=== PATIENT | male | born 1990 | race American Indian/Alaskan Native ===

== ENCOUNTER 2020-04-21 16:11 | Emergency (ER) | payer SELFPAY ==
[2020-04-21] MEDS ORDERED: Meclizine 25 MG Tab PO ONE (17:04)
--- NOTE | 2020-04-21 17:11 | EDM.PDOC ---
ED HPI GENERAL MEDICAL PROBLEM - General Chief Complaint: Cardiovascular Problem Stated Complaint: DIZZY Time Seen by Provider: 04/21/20 16:55 Source of Information: Reports: Patient, RN History Limitations: Reports: No Limitations - History of Present Illness INITIAL COMMENTS - FREE TEXT/NARRATIVE: 29 yo male presents with fatigue and waxing and waning vertigo-like sx's for ab out a week. Was tested for Covid and was negative just before this began. No fever. No cough or sore throat. Has felt unsteady with walking at times. Has not been to the clinic for this. No MILLER or head injury. Feels fatigue as well. Is Type I diabetic and has concern that his BP may be running too high. Not on anything for HTN or david-protection currently. Onset: Gradual Onset Date: 04/16/20 Duration: Day(s): (5-6), Waxing/Waning Location: Reports: Head Quality: Reports: Ache (diffuse) Severity: Mild Improves with: Reports: None Worsens with: Reports: Other (unknown) Context: Reports: Other (See HPI) Associated Symptoms: Reports: Malaise. 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) Left Chest Pain Score (Numeric/FACES): 1 - Related Data Allergies Allergy/AdvReac Type Severity Reaction Status Date / Time azithromycin [From Zithromax] Allergy Hives Verified 04/21/20 16:35 sertraline [From Zoloft] Allergy Confusion Verified 04/21/20 16:35 Home Meds: Home Meds Insulin Aspart [NovoLOG] 35 unit SQ WITHMEALSANDBED 04/21/20 [History] Insulin Detemir [Levemir] 45 unit SQ BID 04/21/20 [History] Meclizine [Antivert] 25 mg PO Q6H PRN #45 tab 04/21/20 [Rx] Telmisartan 40 mg PO DAILY #30 tablet 04/21/20 [Rx] Past Medical History HEENT History: Reports: Impaired Vision Cardiovascular History: Reports: Blood Clots/VTE/DVT Musculoskeletal History: Reports: Fracture Psychiatric History: Reports: Anxiety Endocrine/Metabolic History: Reports: Diabetes, Type I - Past Surgical History Musculoskeletal Surgical History: Reports: ORIF, Other (See Below) Other Musculoskeletal Surgeries/Procedures:: left hand Social & Family History - Tobacco Use Tobacco Use Status *Q: Current Every Day Tobacco User Years of Tobacco use: 10 Packs/Tins Daily: 0.2 - Caffeine Use Caffeine Use: Reports: Energy Drinks - Recreational Drug Use Recreational Drug Use: No ED ROS GENERAL - Review of Systems Review Of Systems: See Below Constitutional: Reports: No Symptoms HEENT: Reports: Vertigo (mild) Respiratory: Reports: No Symptoms Cardiovascular: Reports: Lightheadedness (at times). Denies: Chest Pain, Dyspnea on Exertion, Edema, Orthopnea, Palpitations, PND, Syncope Endocrine: Reports: No Symptoms GI/Abdominal: Reports: No Symptoms : Reports: No Symptoms Musculoskeletal: Reports: No Symptoms Skin: Reports: No Symptoms Neurological: Reports: No Symptoms Psychiatric: Reports: No Symptoms ED EXAM, GENERAL - Physical Exam Exam: See Below Exam Limited By: No Limitations General Appearance: Alert, WD/WN, No Apparent Distress, Obese Eye Exam: Bilateral Eye: Normal Inspection, PERRL Ears: Normal External Exam, Normal Canal, Hearing Grossly Normal, Normal TMs Ear Exam: Bilateral Ear: Auricle Normal, Canal Normal, TM normal Nose: Normal Inspection, No Blood Throat/Mouth: Normal Inspection, Normal Lips, Normal Oropharynx, Normal Voice, No Airway Compromise Head: Atraumatic, Normocephalic Neck: Normal Inspection Respiratory/Chest: No Respiratory Distress, Lungs Clear, Normal Breath Sounds, No Accessory Muscle Use Cardiovascular: Regular Rate, Rhythm, No Edema GI/Abdominal: Normal Bowel Sounds, Soft, Non-Tender, No Distention Back Exam: Normal Inspection. No: CVA Tenderness (R), CVA Tenderness (L) Extremities: Normal Inspection, Normal Range of Motion, Non-Tender, No Pedal Edema Neurological: Alert, Oriented, CN II-XII Intact, Normal Cognition, No Motor/Sensory Deficits Psychiatric: Normal Affect, Normal Mood Skin Exam: Warm, Dry, Intact, Normal Color, No Rash Course - Vital Signs Last Recorded V/S: Last Vital Signs Temp 36.2 C 04/21/20 16:41 Pulse 93 04/21/20 16:41 Resp 16 04/21/20 16:41 BP 145/93 H 04/21/20 16:41 Pulse Ox 98 04/21/20 16:41 Orthostatic Blood Pressure [ 144/99 Standing] Orthostatic Blood Pressure [ 153/82 Sitting] Orthostatic Blood Pressure [ 142/88 Supine] - Orders/Labs/Meds Labs: Laboratory Tests 04/21/20 04/21/20 Range/Units 17:18 17:31 POC Glucose 71 L (74-106) MG/DL SARS CoV-2 RNA Rapid NAYA Negative Meds: Medications Discontinued Medications Generic Name Dose Route Start Last Admin Trade Name Bebo PRN Reason Stop Dose Admin Meclizine HCl 25 mg 04/21/20 17:04 04/21/20 17:11 Antivert PO 04/21/20 17:05 25 mg ONETIME ONE Administration - Re-Assessments/Exams Free Text/Narrative Re-Assessment/Exam: 04/21/20 17:44 Feels better after meclizine. Fingerstick glc was 71 so juice was given. Departure - Departure Time of Disposition: 17:45 Disposition: Home, Self-Care 01 Condition: Fair Clinical Impression: Labyrinthitis Qualifiers: Laterality: unspecified laterality Qualified Code(s): H83.09 - Labyrinthitis, unspecified ear HTN (hypertension) Qualifiers: Hypertension type: unspecified Qualified Code(s): I10 - Essential (primary) hypertension Type 1 diabetes Qualifiers: Diabetes mellitus complication status: without complication Qualified Code(s): E10.9 - Type 1 diabetes mellitus without complications Prescriptions: Meclizine [Antivert] 25 mg PO Q6H PRN #45 tab PRN Reason: Dizziness Telmisartan 40 mg PO DAILY #30 tablet Instructions: Labyrinthitis Referrals: Arianne Alex NP [Primary Care Provider] - Forms: ED Department Discharge Additional Instructions: Take meclizine as needed for dizziness. Take Telmisartan 40 mg every 24 hrs. Recheck with your doctor to discuss if your BP is optimally controlled and to discuss whether you might also benefit from a statin. Sepsis Event Note (ED) - Evaluation Sepsis Screening Result: No Definite Risk - Focused Exam Vital Signs: Vital Signs Temp Pulse Resp BP Pulse Ox 04/21/20 16:41 36.2 C 93 16 145/93 H 98
== END 2020-04-21 17:59 | disposition home or self-care (01) ==
LOC: JP.ED 16:11
DX: H83.09 Labyrinthitis, unspecified ear (principal); I10 Essential (primary) hypertension; E10.9 Type 1 diabetes mellitus without complications; F17.210 Nicotine dependence, cigarettes, uncomplicated; Z88.1 Allergy status to other antibiotic agents; Z88.8 Allergy status to other drugs, medicaments and biological substances; Z79.899 Other long term (current) drug therapy; Z20.828 Contact with and (suspected) exposure to other viral communicable diseases
CPT/HCPCS: 82962; 99284; A9270-GY; U0002

== ENCOUNTER 2020-06-30 15:25 | Emergency (ER) | payer SELFPAY ==
--- NOTE | 2020-06-30 17:14 | EDM.PDOC ---
ED HPI GENERAL MEDICAL PROBLEM - General Chief Complaint: Cardiovascular Problem Stated Complaint: HIGH BP Time Seen by Provider: 06/30/20 16:57 Source of Information: Reports: Patient History Limitations: Reports: No Limitations - History of Present Illness INITIAL COMMENTS - FREE TEXT/NARRATIVE: Kevin is a 29-year-old male with a history significant for type 1 diabetes, anxiety, and hypertension presenting to the ED for evaluation of significantly elevated blood pressures today. Patient states that he was at work and started developed tingling along his spine and thought that his blood sugars may be dropping. He checked his blood sugar and found it to be at 100. He then checked his blood pressure and found it to be at 187/116 on a wrist cuff. He rechecked his blood pressure using an arm cuff and found it to be 183/111. Because of the continued elevation he decided to come in to be evaluated. Patient denies any vision changes. He has had some intermittent chest pain which he thinks is related to his work. He also has been having difficulty with sleeping both initiating sleep and staying asleep. Patient does have a history significant for anxiety and although he does not feel stressed, I am he may have had an anxiety attack today prompting the elevation of his blood pressure. On arrival to the ED, the patient had a blood pressure of 143/74. A repeat done 20 minutes later was revealed a pressure 136/76 with a pulse of 83. His pressure now is 121/57. The patient states that right now he feels tired and washed out. He is now reflecting that this may have been an anxiety attack. He is on no medications for his anxiety but takes telmisartan for his high blood pressure and is on a long-acting and short acting insulin for his diabetes. He denies any fever, chills, cough or shortness of breath, loss of taste or smell, headache, vision changes, new onset of numbness or tingling except for along the spine, no new weakness. Has had no nausea, vomiting, or diarrhea. Chest Pain Score (Numeric/FACES): 2 - Related Data Allergies Allergy/AdvReac Type Severity Reaction Status Date / Time azithromycin [From Zithromax] Allergy Hives Verified 06/30/20 15:52 sertraline [From Zoloft] Allergy Confusion Verified 06/30/20 15:52 Home Meds: Home Meds Insulin Aspart [NovoLOG] 35 unit SQ WITHMEALSANDBED 04/21/20 [History] Insulin Detemir [Levemir] 45 unit SQ BID 04/21/20 [History] Telmisartan 40 mg PO DAILY #30 tablet 04/21/20 [Rx] Past Medical History HEENT History: Reports: Impaired Vision Cardiovascular History: Reports: Blood Clots/VTE/DVT, Hypertension Respiratory History: Reports: None Gastrointestinal History: Reports: None Genitourinary History: Reports: None Musculoskeletal History: Reports: Fracture Psychiatric History: Reports: Anxiety Endocrine/Metabolic History: Reports: Diabetes, Type I - Infectious Disease History Infectious Disease History: Reports: Chicken Pox - Past Surgical History Musculoskeletal Surgical History: Reports: ORIF, Other (See Below) Other Musculoskeletal Surgeries/Procedures:: left hand Social & Family History - Tobacco Use Tobacco Use Status *Q: Current Every Day Tobacco User Years of Tobacco use: 11 Packs/Tins Daily: 0.5 - Caffeine Use Caffeine Use: Reports: Coffee - Recreational Drug Use Recreational Drug Use: No ED ROS GENERAL - Review of Systems Review Of Systems: See Below Constitutional: Reports: No Symptoms HEENT: Reports: No Symptoms Respiratory: Reports: No Symptoms Cardiovascular: Reports: Chest Pain (Ongoing and may be related to muscle strain at work.) Endocrine: Reports: No Symptoms GI/Abdominal: Reports: No Symptoms : Reports: No Symptoms Musculoskeletal: Reports: No Symptoms Skin: Reports: No Symptoms Neurological: Reports: Tingling (Tingling along the spine.) Psychiatric: Reports: Anxiety (Patient is scheduled to see his provider to address this on July 18.), Other (Insomnia with difficulty falling asleep or staying asleep) Hematologic/Lymphatic: Reports: No Symptoms Immunologic: Reports: No Symptoms ED EXAM, GENERAL - Physical Exam Exam: See Below Exam Limited By: No Limitations General Appearance: Alert, No Apparent Distress, Obese Eye Exam: Bilateral Eye: EOMI, PERRL Head: Atraumatic, Normocephalic Neck: Normal Inspection, Supple, Non-Tender, Full Range of Motion Respiratory/Chest: No Respiratory Distress, Lungs Clear, Normal Breath Sounds Cardiovascular: Normal Peripheral Pulses, Regular Rate, Rhythm, No Murmur Peripheral Pulses: 2+: Radial (L), Radial (R), Posterior Tibial (L), Posterior Tibial (R) GI/Abdominal: Normal Bowel Sounds, Soft, Non-Tender Back Exam: Normal Inspection, Full Range of Motion Extremities: Normal Inspection, Normal Range of Motion Neurological: Alert, Oriented, Normal Cognition, No Motor/Sensory Deficits Psychiatric: Normal Affect, Anxious Skin Exam: Warm, Dry, Intact, Normal Color, No Rash Lymphatic: No Adenopathy Course - Vital Signs Last Recorded V/S: Last Vital Signs Temp 36.8 C 06/30/20 15:49 Pulse 88 06/30/20 16:03 Resp 16 06/30/20 16:03 BP 136/76 06/30/20 16:03 Pulse Ox 97 06/30/20 16:03 - Re-Assessments/Exams Free Text/Narrative Re-Assessment/Exam: 06/30/20 17:16 during the time in the emergency room, the patient has become normotensive with a pressure of 121/57. Although he feels a little "washed out" he is feeling much more calm. Retrorespectively, the patient feels that he may have had a panic attack causing his hypertension. At this time I believe the patient is suitable for discharge home. He will want a follow-up with his primary care provider if his blood pressure becomes labile again as he may require more than 1 medication to control it. As he is currently symptom-free, aggressive work-up of this is probably not warranted in the emergency room at this time. Indications to return to the ED were discussed with the patient and he was discharged in satisfactory condition. Departure - Departure Time of Disposition: 17:17 Disposition: Home, Self-Care 01 Condition: Good Clinical Impression: Anxiety Hypertension Qualifiers: Hypertension type: unspecified Qualified Code(s): I10 - Essential (primary) hypertension Instructions: Managing Your Hypertension, Supporting Someone With Anxiety Referrals: Arianne Alex NP [Primary Care Provider] - Care Plan Goals: I recommend that you continue to monitor your blood pressure and your anxiety. There may be a correlation between the 2. I would talk with your primary care provider about perhaps initiating a medication like Paxil or Prozac to address your anxiety. You may also benefit from a sleep aid like melatonin to deal with your insomnia. Sepsis Event Note (ED) - Evaluation Sepsis Screening Result: No Definite Risk - Focused Exam Vital Signs: Vital Signs Temp Pulse Resp BP Pulse Ox 06/30/20 16:03 88 16 136/76 97 06/30/20 15:49 36.8 C 75 16 143/74 H 97 - Problem List & Annotations (1) Anxiety SNOMED Code(s): 48854093 Code(s): F41.9 - ANXIETY DISORDER, UNSPECIFIED Status: Acute Priority: Medium Current Visit: Yes (2) HTN (hypertension) SNOMED Code(s): 42378335 Code(s): I10 - ESSENTIAL (PRIMARY) HYPERTENSION Status: Acute Priority: Medium Current Visit: Yes Qualifiers: Hypertension type: unspecified Qualified Code(s): I10 - Essential (primary) hypertension - Problem List Review Problem List Initiated/Reviewed/Updated: Yes
== END 2020-06-30 17:24 | disposition home or self-care (01) ==
LOC: JP.ED 15:25
DX: I10 Essential (primary) hypertension (principal); F41.9 Anxiety disorder, unspecified; E10.9 Type 1 diabetes mellitus without complications; Z72.0 Tobacco use; Z88.1 Allergy status to other antibiotic agents; Z88.8 Allergy status to other drugs, medicaments and biological substances; Z79.899 Other long term (current) drug therapy
CPT/HCPCS: 99282; 99283

== ENCOUNTER 2020-10-07 14:47 | Emergency (ER) | payer SELFPAY ==
[2020-10-07] MEDS ORDERED: Bacitracin Oint 1 GM U/D Packet TOP ONE (15:39)
--- NOTE | 2020-10-07 15:45 | EDM.PDOC ---
ED HPI GENERAL MEDICAL PROBLEM - General Chief Complaint: Laceration Stated Complaint: CUT ON MIDDLE LEFT FINGER Time Seen by Provider: 10/07/20 15:30 Source of Information: Reports: Patient, Old Records, RN History Limitations: Reports: No Limitations - History of Present Illness INITIAL COMMENTS - FREE TEXT/NARRATIVE: 30 yo NA diabetic male incurred a partial thickness avulsion to the dorsum of his L long finger at the PIP jt last night. He is here for evaluation. 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) finger Pain Score (Numeric/FACES): 3 - Related Data Allergies Allergy/AdvReac Type Severity Reaction Status Date / Time azithromycin [From Zithromax] Allergy Hives Verified 06/30/20 15:52 sertraline [From Zoloft] Allergy Confusion Verified 06/30/20 15:52 Home Meds: Home Meds Insulin Aspart [NovoLOG] 35 unit SQ WITHMEALSANDBED 04/21/20 [History] Insulin Detemir [Levemir] 45 unit SQ BID 04/21/20 [History] busPIRone [Buspar] 10 mg PO TID 10/07/20 [History] Past Medical History HEENT History: Reports: Impaired Vision Cardiovascular History: Reports: Blood Clots/VTE/DVT, Hypertension Respiratory History: Reports: None Gastrointestinal History: Reports: None Genitourinary History: Reports: None Musculoskeletal History: Reports: Fracture Psychiatric History: Reports: Anxiety Endocrine/Metabolic History: Reports: Diabetes, Type I - Infectious Disease History Infectious Disease History: Reports: Chicken Pox - Past Surgical History Cardiovascular Surgical History: Reports: None GI Surgical History: Reports: Appendectomy Musculoskeletal Surgical History: Reports: ORIF, Other (See Below) Other Musculoskeletal Surgeries/Procedures:: left hand Social & Family History - Family History Family Medical History: No Pertinent Family History - Tobacco Use Second Hand Smoke Exposure: Yes - Caffeine Use Caffeine Use: Reports: Coffee, Energy Drinks, Soda - Recreational Drug Use Recreational Drug Use: Yes Recreational Drug Type: Reports: Marijuana/Hashish ED ROS GENERAL - Review of Systems Review Of Systems: See Below Constitutional: Reports: No Symptoms Skin: Reports: Wound (L long finger) Neurological: Reports: No Symptoms ED EXAM, SKIN/RASH Exam: See Below Exam Limited By: No Limitations General Appearance: Alert, WD/WN, No Apparent Distress Extremities: Normal Inspection Neurological: Alert, Oriented, CN II-XII Intact, Normal Cognition, No Motor/Sensory Deficits Psychiatric: Normal Affect, Normal Mood Skin: Warm, Dry, Normal Color, No Rash, Wound/Incision (there is a 4 mm x 3 mm partial thickness avulsion from the dorsum of the L long finger PIP jt dorsally. ) Course - Vital Signs Text/Narrative:: Wound cleaned and dressed by nursing. Last Recorded V/S: Last Vital Signs Temp 36.6 C 10/07/20 15:19 Pulse 84 10/07/20 15:19 Resp 17 10/07/20 15:19 BP 150/82 H 10/07/20 15:19 Pulse Ox 96 10/07/20 15:19 - Orders/Labs/Meds Orders: Active Orders 24 hr Category Date Time Status Bacitracin [Bacitracin Oint 1 GM] Med 10/07/20 15:39 Once 1 dose TOP ONETIME ONE Departure - Departure Time of Disposition: 15:50 Disposition: Home, Self-Care 01 Condition: Good Clinical Impression: Finger avulsion Qualifiers: Encounter type: initial encounter Qualified Code(s): S61.209A - Unspecified open wound of unspecified finger without damage to nail, initial encounter - Discharge Information *PRESCRIPTION DRUG MONITORING PROGRAM REVIEWED*: Not Applicable *COPY OF PRESCRIPTION DRUG MONITORING REPORT IN PATIENT DONTE: Not Applicable Instructions: Deep Skin Avulsion Referrals: PCP,None [Primary Care Provider] - Additional Instructions: Clean wound twice daily with soap and water. Dry. Apply antibiotic ointment and a new dressing. Take acetaminophen up to 1000 mg every 6 hrs for pain relief. Recheck for signs of infection. Sepsis Event Note (ED) - Evaluation Sepsis Screening Result: No Definite Risk - Focused Exam Vital Signs: Vital Signs Temp Pulse Resp BP Pulse Ox 10/07/20 15:19 36.6 C 84 17 150/82 H 96 - My Orders Last 24 Hours: My Active Orders 10/07/20 15:39 Bacitracin [Bacitracin Oint 1 GM] 1 dose TOP ONETIME ONE - Assessment/Plan Last 24 Hours: My Active Orders 10/07/20 15:39 Bacitracin [Bacitracin Oint 1 GM] 1 dose TOP ONETIME ONE
== END 2020-10-07 15:57 | disposition home or self-care (01) ==
LOC: JP.ED 14:47
DX: S61.203A Unspecified open wound of left middle finger without damage to nail, initial encounter (principal); I10 Essential (primary) hypertension; E10.9 Type 1 diabetes mellitus without complications; Z79.899 Other long term (current) drug therapy; Z77.22 Contact with and (suspected) exposure to environmental tobacco smoke (acute) (chronic); Z88.1 Allergy status to other antibiotic agents; Z88.8 Allergy status to other drugs, medicaments and biological substances; X58.XXXA Exposure to other specified factors, initial encounter
CPT/HCPCS: 99282

== ENCOUNTER 2020-10-18 18:40 | Emergency (ER) | payer SELFPAY ==
--- NOTE | 2020-10-18 19:29 | EDM.PDOC ---
ED HPI GENERAL MEDICAL PROBLEM - General Chief Complaint: Diabetic Complaint Stated Complaint: HIGH BLOOD SUGARS Time Seen by Provider: 10/18/20 19:18 Source of Information: Reports: Patient, Family, RN Notes Reviewed History Limitations: Reports: No Limitations - History of Present Illness INITIAL COMMENTS - FREE TEXT/NARRATIVE: 30-year-old gentleman presents emergency department with a complaint of weakness fluctuations in blood sugar he does admit that he has not taking all of his medications as prescribed has had problems with his diabetes his sugar was high up into the 300s he took his normal dose of insulin checked his blood sugar afterwards was around 150 and then he felt poor felt like he was going to pass out family did help him back to the chair. At this time he just does not feel right left arm Pain Score (Numeric/FACES): 1 - Related Data Allergies Allergy/AdvReac Type Severity Reaction Status Date / Time azithromycin [From Zithromax] Allergy Hives Verified 10/18/20 19:07 sertraline [From Zoloft] Allergy Confusion Verified 10/18/20 19:07 Home Meds: Home Meds Insulin Aspart [NovoLOG] 35 unit SQ WITHMEALSANDBED 04/21/20 [History] Insulin Detemir [Levemir] 45 unit SQ BID 04/21/20 [History] busPIRone [Buspar] 10 mg PO TID 10/07/20 [History] Past Medical History HEENT History: Reports: Impaired Vision Cardiovascular History: Reports: Blood Clots/VTE/DVT, Hypertension Musculoskeletal History: Reports: Fracture Psychiatric History: Reports: Anxiety Endocrine/Metabolic History: Reports: Diabetes, Type I - Infectious Disease History Infectious Disease History: Reports: Chicken Pox - Past Surgical History GI Surgical History: Reports: Appendectomy Musculoskeletal Surgical History: Reports: ORIF, Other (See Below) Other Musculoskeletal Surgeries/Procedures:: left hand Social & Family History - Family History Family Medical History: No Pertinent Family History - Tobacco Use Tobacco Use Status *Q: Current Every Day Tobacco User Years of Tobacco use: 18 Packs/Tins Daily: 1 - Caffeine Use Caffeine Use: Reports: Coffee, Energy Drinks, Soda - Recreational Drug Use Recreational Drug Use: Yes Drug Use in Last 12 Months: Yes Recreational Drug Type: Reports: Marijuana/Hashish Recreational Drug Use Frequency: Monthly ED ROS GENERAL - Review of Systems Review Of Systems: See Below Constitutional: Reports: Weakness HEENT: Reports: No Symptoms Respiratory: Reports: No Symptoms Cardiovascular: Reports: Syncope Endocrine: Reports: High Glucose GI/Abdominal: Reports: No Symptoms ED EXAM, GENERAL - Physical Exam Exam: See Below Exam Limited By: No Limitations General Appearance: Alert, WD/WN, No Apparent Distress Respiratory/Chest: No Respiratory Distress, Lungs Clear, Normal Breath Sounds, No Accessory Muscle Use, Chest Non-Tender Cardiovascular: Regular Rate, Rhythm, No Murmur GI/Abdominal: Soft, Non-Tender #1 Interpretation EKG Date: 10/18/20 Time: 19:48 Rhythm: NSR [place]: Normal P-Wave: Present QRS: Normal ST-T: Normal QT: Normal Comparison: NA - No Prior EKG Course - Vital Signs Last Recorded V/S: Last Vital Signs Temp 97.8 F 10/18/20 19:08 Pulse 100 10/18/20 19:51 Resp 19 10/18/20 19:51 BP 149/77 H 10/18/20 19:51 Pulse Ox 93 L 10/18/20 19:51 - Orders/Labs/Meds Orders: Active Orders 24 hr Category Date Time Status EKG Documentation Completion [RC] ASDIRECTED Care 10/18/20 19:27 Active EKG 12 Lead [EK] Stat Ther 10/18/20 19:27 Ordered Labs: Laboratory Tests 10/18/20 10/18/20 10/18/20 Range/Units 19:26 19:37 19:37 WBC 9.2 (4.5-11.0) K/uL RBC 5.05 (4.30-5.90) M/uL Hgb 15.2 H (12.0-15.0) g/dL Hct 44.2 (40.0-54.0) % MCV 88 (80-98) fL MCH 30 (27-31) pg MCHC 34 (32-36) % Plt Count 224 (150-400) K/uL Neut % (Auto) 58.3 (36-66) % Lymph % (Auto) 31.2 (24-44) % Ware % (Auto) 7.4 H (2-6) % Eos % (Auto) 2.7 (2-4) % Baso % (Auto) 0.4 (0-1) % D-Dimer, Quantitative (0.0-500.0) ng/mL Sodium 149 H (140-148) mmol/L Potassium 3.7 (3.6-5.2) mmol/L Chloride 109 H (100-108) mmol/L Carbon Dioxide 28 (21-32) mmol/L Anion Gap 15.7 H (5.0-14.0) mmol/L BUN 10 (7-18) mg/dL Creatinine 0.8 (0.8-1.3) mg/dL Est Cr Clr Drug Dosing 155.36 mL/min Estimated GFR (MDRD) > 60 (>60) Glucose 51 L (74-106) mg/dL Lactic Acid 1.0 (0.4-2.0) mmol/L Calcium 9.1 (8.5-10.1) mg/dL Total Bilirubin 0.4 (0.2-1.0) mg/dL AST 30 (15-37) U/L ALT 61 (12-78) U/L Alkaline Phosphatase 117 H (46-116) U/L Total Protein 7.1 (6.4-8.2) g/dL Albumin 2.4 L (3.4-5.0) g/dL Globulin 4.7 H (2.3-3.5) g/dL Albumin/Globulin Ratio 0.5 L (1.2-2.2) TSH, Ultra Sensitive 1.099 (0.358-3.740) uIU/mL Urine Color (YELLOW) Urine Appearance (CLEAR) Urine pH (5.0-8.0) Ur Specific [place] (1.008-1.030) Urine Protein (NEGATIVE) mg/dL Urine Glucose (UA) (NEGATIVE) mg/dL Urine Ketones (NEGATIVE) mg/dL Urine Occult Blood (NEGATIVE) Urine Nitrite (NEGATIVE) Urine Bilirubin (NEGATIVE) Urine Urobilinogen (0.2-1.0) EU/dL Ur Leukocyte Esterase (NEGATIVE) Urine RBC (0-5) Urine WBC (0-5) Ur Epithelial Cells Amorphous Sediment Urine Bacteria Urine Mucus 10/18/20 10/18/20 Range/Units 19:37 20:35 WBC (4.5-11.0) K/uL RBC (4.30-5.90) M/uL Hgb (12.0-15.0) g/dL Hct (40.0-54.0) % MCV (80-98) fL MCH (27-31) pg MCHC (32-36) % Plt Count (150-400) K/uL Neut % (Auto) (36-66) % Lymph % (Auto) (24-44) % Ware % (Auto) (2-6) % Eos % (Auto) (2-4) % Baso % (Auto) (0-1) % D-Dimer, Quantitative 154.15 (0.0-500.0) ng/mL Sodium (140-148) mmol/L Potassium (3.6-5.2) mmol/L Chloride (100-108) mmol/L Carbon Dioxide (21-32) mmol/L Anion Gap (5.0-14.0) mmol/L BUN (7-18) mg/dL Creatinine (0.8-1.3) mg/dL Est Cr Clr Drug Dosing mL/min Estimated GFR (MDRD) (>60) Glucose (74-106) mg/dL Lactic Acid (0.4-2.0) mmol/L Calcium (8.5-10.1) mg/dL Total Bilirubin (0.2-1.0) mg/dL AST (15-37) U/L ALT (12-78) U/L Alkaline Phosphatase (46-116) U/L Total Protein (6.4-8.2) g/dL Albumin (3.4-5.0) g/dL Globulin (2.3-3.5) g/dL Albumin/Globulin Ratio (1.2-2.2) TSH, Ultra Sensitive (0.358-3.740) uIU/mL Urine Color Yellow (YELLOW) Urine Appearance Clear (CLEAR) Urine pH 6.0 (5.0-8.0) Ur Specific [place] >= 1.030 (1.008-1.030) Urine Protein Negative (NEGATIVE) mg/dL Urine Glucose (UA) Negative (NEGATIVE) mg/dL Urine Ketones Negative (NEGATIVE) mg/dL Urine Occult Blood Negative (NEGATIVE) Urine Nitrite Negative (NEGATIVE) Urine Bilirubin Negative (NEGATIVE) Urine Urobilinogen 0.2 (0.2-1.0) EU/dL Ur Leukocyte Esterase Negative (NEGATIVE) Urine RBC Not seen (0-5) Urine WBC Not seen (0-5) Ur Epithelial Cells Not seen Amorphous Sediment Not seen Urine Bacteria Not seen Urine Mucus Few Departure - Departure Time of Disposition: 20:54 Disposition: Home, Self-Care 01 Condition: Fair Clinical Impression: Hypoglycemia, Dehydration - Discharge Information Instructions: Dehydration, Adult, Hypoglycemia Referrals: Arianne Alex NP [Primary Care Provider] - Forms: ED Department Discharge, ED Return to Work/School Form Additional Instructions: Continue with your regular medications, and regular diet, please followup with your primary care provider in 3-5 days if not better, please call return to the emergency department with worsening of symptoms. Sepsis Event Note (ED) - Evaluation Sepsis Screening Result: No Definite Risk - Focused Exam Vital Signs: Vital Signs Temp Pulse Resp BP Pulse Ox 10/18/20 19:51 100 19 149/77 H 93 L 10/18/20 19:08 97.8 F 102 H 12 154/94 H 94 L 10/18/20 18:55 97.8 F 102 H 12 154/94 H 94 L - My Orders Last 24 Hours: My Active Orders 10/18/20 19:27 EKG Documentation Completion [RC] ASDIRECTED EKG 12 Lead [EK] Stat - Assessment/Plan Last 24 Hours: My Active Orders 10/18/20 19:27 EKG Documentation Completion [RC] ASDIRECTED EKG 12 Lead [EK] Stat Plan: Assessment Acuity = acute Site and laterality = hypoglycemia and dehydration Etiology = poor blood sugar control and diabetes mellitus type 1 Manifestations = weakness, fatigue, near syncope now resolved Location of injury = Home Lab values = CBC unremarkable CMP reveals a glucose low at 51 consistent with hyperglycemia, urinalysis reveals specific gravity 1.03 consistent with intravascular volume depletion Plan He was able to eat and drink while in the emergency department I counseled him on blood sugar and blood sugar management fasting to follow-up with his primary care for further evaluation consider insulin pump This note was dictated using [employer] voice recognition software please call with any questions on syntax or grammar.
== END 2020-10-18 21:21 | disposition home or self-care (01) ==
LOC: JP.ED 18:40
DX: E10.649 Type 1 diabetes mellitus with hypoglycemia without coma (principal); E86.0 Dehydration; I10 Essential (primary) hypertension; Z72.0 Tobacco use; Z88.1 Allergy status to other antibiotic agents
CPT/HCPCS: 36415; 80053; 81001; 83605; 84443; 85025; 85379; 93005; 99285-25

== ENCOUNTER 2021-04-15 19:00 | Emergency (ER) | payer SELFPAY ==
[2021-04-15] MEDS ORDERED: Lidocaine 5% 700 MG Patch TRDERM ONE (20:32)
[2021-04-15] MEDS ORDERED: Ketorolac 30 MG/ML SDV IM ONE (20:32)
[2021-04-15] MEDS ORDERED: Cyclobenzaprine 10 MG Tab PO ONE (20:32)
--- NOTE | 2021-04-15 20:58 | EDM.PDOC ---
ED HPI GENERAL MEDICAL PROBLEM - General Chief Complaint: Flank Pain Stated Complaint: lower back/kidney pain Time Seen by Provider: 04/15/21 19:52 Source of Information: Reports: Patient History Limitations: Reports: No Limitations - History of Present Illness INITIAL COMMENTS - FREE TEXT/NARRATIVE: Patient presents emergency room today secondary to reported sudden onset of ri ght side pain states it started on the right side of his spine mid to lower back and then wrapped around the bottom of his rib cage to his right side. 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 He describes pain as a shooting sensation he had a sense of urgency and had to go to the bathroom but denied any urinary sym ptoms when going patient stated he tried to find a position of comfort by standing and walking around that did not seem to help. Patient also states that prior to arrival in the ER he went to sit down and he had bilateral cold sensation numbness in his legs he stood up and the sensation did go away. Patient does deny any history of back injury or chronic back pain concern. Patient states around noon today he had been lifting weightshas a home weight bench set up says he used a 20 pound dumbbells 60 pound curls in 120 pound bench press. He states that his his normal routine that he does on a regular basis and he denies any problems with that episode. Patient states that he also is a diabetic and uses insulin as he did not tolerate oral medications specifically Metformin secondary to GI upset. He states his last hemoglobin A1c was 6.7 PMH--obesity, DM2 (2009), anxiety Meds--levimir, novalog, (has previously used metformin but did not tolerate due to GI upset thus was placed on insulin therapy), busiparone Allergies--azithromycin, zoloft Tob--1ppd EtOH--rare Drugs--denies Denies having had COVID infection nor has he received his COVID immunization Onset: Today, Sudden Onset Time: 16:00 Right Flank Pain Score (Numeric/FACES): 4 - Related Data Allergies Allergy/AdvReac Type Severity Reaction Status Date / Time azithromycin [From Zithromax] Allergy Hives Verified 04/15/21 19:21 sertraline [From Zoloft] Allergy Confusion Verified 04/15/21 19:21 Home Meds: Home Meds Insulin Aspart [NovoLOG] 35 unit SQ WITHMEALSANDBED 04/21/20 [History] Insulin Detemir [Levemir] 45 unit SQ BID 04/21/20 [History] busPIRone [Buspar] 10 mg PO TID 10/07/20 [History] Past Medical History HEENT History: Reports: Impaired Vision, Otitis Media, Sinusitis Cardiovascular History: Reports: Blood Clots/VTE/DVT, High Cholesterol, Hypertension Gastrointestinal History: Reports: Irritable Bowel Syndrome Musculoskeletal History: Reports: Fracture Psychiatric History: Reports: Anxiety, Depression, PTSD Endocrine/Metabolic History: Reports: Diabetes, Type I, Vitamin D Deficiency - Infectious Disease History Infectious Disease History: Reports: Chicken Pox - Past Surgical History HEENT Surgical History: Reports: Tonsillectomy Cardiovascular Surgical History: Reports: None GI Surgical History: Reports: Appendectomy Musculoskeletal Surgical History: Reports: ORIF, Other (See Below) Other Musculoskeletal Surgeries/Procedures:: left hand Social & Family History - Family History Family Medical History: No Pertinent Family History - Tobacco Use Tobacco Use Status *Q: Current Every Day Tobacco User Years of Tobacco use: 15 Packs/Tins Daily: 1 - Caffeine Use Caffeine Use: Reports: Coffee, Energy Drinks, Soda - Recreational Drug Use Recreational Drug Use: Yes Drug Use in Last 12 Months: No Recreational Drug Type: Reports: Marijuana/Hashish ED ROS GENERAL - Review of Systems Review Of Systems: Comprehensive ROS is negative, except as noted in HPI. Constitutional: Reports: No Symptoms HEENT: Reports: No Symptoms Respiratory: Reports: No Symptoms Cardiovascular: Reports: No Symptoms Endocrine: Reports: No Symptoms GI/Abdominal: Reports: No Symptoms : Reports: No Symptoms Musculoskeletal: Reports: Back Pain, Leg Pain, Muscle Pain, Muscle Stiffness Skin: Reports: No Symptoms Neurological: Reports: Numbness, Tingling Psychiatric: Reports: No Symptoms Hematologic/Lymphatic: Reports: No Symptoms Immunologic: Reports: No Symptoms ED EXAM,LOWER BACK PAIN/INJURY - Physical Exam Exam: See Below Exam Limited By: No Limitations General Appearance: Alert, WD/WN, Moderate Distress (secondary to right side back pain/discomfort especially with movement) Eye Exam: Bilateral Eye: EOMI, Normal Inspection, PERRL Ears: Normal External Exam, Hearing Grossly Normal Nose: Normal Inspection Throat/Mouth: Normal Inspection, Normal Lips, Normal Voice, No Airway Compromise Head: Atraumatic, Normocephalic Neck: Normal Inspection, Supple, Non-Tender, Full Range of Motion Respiratory/Chest: No Respiratory Distress, Lungs Clear, Normal Breath Sounds, No Accessory Muscle Use, Chest Non-Tender Cardiovascular: Normal Peripheral Pulses, Regular Rate, Rhythm, No Edema, No Murmur GI/Abdominal: Normal Bowel Sounds, Soft, Non-Tender, No Distention. No: Guarding, Rigid, Rebound (Male) Exam: Deferred Rectal (Males) Exam: Deferred Back Exam: Normal Inspection, Decreased Range of Motion, Muscle Spasm, Par aspinal Tenderness (he has palpatory tenderness lower back area junction;he states when I did palpate that area he also felt a shooting pain down his right hip and leg that when he got up and moved around but that did subside), Other (Patient with noted limited forward bending secondary to pain and discomfort he also states that he does have some right radiculopathy when he attempts forward bending ) Extremities: Normal Inspection, Normal Range of Motion, Normal Capillary Refill Neurological: Alert, Normal Mood/Affect, Normal Dorsiflexion, CN II-XII Intact, Normal Plantar Flexion, Normal Gait, No Motor/Sensory Deficits, Oriented x 3 Psychiatric: Normal Affect, Normal Mood Skin Exam: Warm, Dry, Intact, Normal Color Course - Vital Signs Text/Narrative:: Discussed with patient and friend at bedside today's ER findings as well exam and recommendations and further care will provide Toradol IM as well as Salonpas patch and a muscle relaxant here in the emergency room further medications can be picked up through the [facility] in the waiting area. I did recommend that he does not lift any weights at this time there are no job duty restrictions. He may use ice or heat as he finds helpful recommendation is to follow-up with his primary care provider in the next 1 to 2 weeks for continued symptoms of concern Last Recorded V/S: Last Vital Signs Temp 97.8 F 04/15/21 19:26 Pulse 101 H 04/15/21 19:26 Resp 18 04/15/21 19:26 BP 161/94 H 04/15/21 19:26 Pulse Ox 97 04/15/21 19:26 - Orders/Labs/Meds Labs: Laboratory Tests 04/15/21 Range/Units 19:41 Urine Color Yellow (YELLOW) Urine Appearance Clear (CLEAR) Urine pH 5.5 (5.0-8.0) Ur Specific [place] 1.020 (1.008-1.030) Urine Protein Negative (NEGATIVE) mg/dL Urine Glucose (UA) Negative (NEGATIVE) mg/dL Urine Ketones Negative (NEGATIVE) mg/dL Urine Occult Blood Negative (NEGATIVE) Urine Nitrite Negative (NEGATIVE) Urine Bilirubin Negative (NEGATIVE) Urine Urobilinogen 0.2 (0.2-1.0) EU/dL Ur Leukocyte Esterase Negative (NEGATIVE) Urine RBC Not seen (0-5) Urine WBC Not seen (0-5) Ur Epithelial Cells Rare Amorphous Sediment Not seen Urine Bacteria Not seen Urine Mucus Not seen Meds: Medications Discontinued Medications Generic Name Dose Route Start Last Admin Trade Name Bebo PRN Reason Stop Dose Admin Cyclobenzaprine HCl 10 mg 04/15/21 20:32 04/15/21 20:45 Cyclobenzaprine 10 Mg Tab PO 04/15/21 20:33 10 mg ONETIME ONE Administration Ketorolac Tromethamine 60 mg 04/15/21 20:32 04/15/21 20:46 Ketorolac 30 Mg/Ml Sdv IM 04/15/21 20:33 Not Given ONETIME ONE Lidocaine 700 mg 04/15/21 20:32 04/15/21 20:46 Lidocaine 5% 700 Mg Patch TRDERM 04/15/21 20:33 700 mg ONETIME ONE Administration Departure - Departure Time of Disposition: 21:05 Disposition: Home, Self-Care 01 Condition: Good Clinical Impression: Lumbar radiculopathy, Back muscle spasm, Acute right-sided low back pain with right-sided sciatica, Elevated blood pressure reading Obesity Qualifiers: Obesity type: unspecified obesity type Obesity classification: unspecified obesity classification Serious obesity comorbidity presence: with serious comorbidity Qualified Code(s): E66.9 - Obesity, unspecified - Discharge Information *PRESCRIPTION DRUG MONITORING PROGRAM REVIEWED*: Not Applicable *COPY OF PRESCRIPTION DRUG MONITORING REPORT IN PATIENT DONTE: Not Applicable Instructions: Muscle Cramps and Spasms, [id number], Sciatica, [id number], How to Take Your Blood Pressure, [id number], Form - Blood Pressure Record Sheet, Back Exercises, [id number], Low Back Sprain or Strain Rehab-SportsMed Referrals: Arianne Alex NP [Primary Care Provider] - Additional Instructions: As discussed it is recommended that you use ice or heat as you find comfortable for her pain. If you use a heating pad use it only on a low setting and do not sleep with this as this may cause skin carvalho which would lead to further medical complications. You have been provided a prescription for ibuprofen do not use [id number] ibuprofen (Motrin, Advil) or naproxen (Aleve) as these are the same medications and you should not take double dosing. You may add on acetaminophen (Tylenol) should you have any further pain or discomfort. We have provided you with a Lidoderm patch here in the emergency room this can be obtained [id number] and packaging was provided so that you may be able to locate it easier. Lidocaine patches are found under the name brand tracy pass in the athletic I will wear icy hot [employer] medications of that nature are located. Is important that you do back stretches and walk frequently in order to keep your muscles stretched and loose. This will help with pain in the longer although although I do anticipate that you will have some discomfort with these motions initially. It is recommended that you follow-up with your primary care provider in the next 1 to 2 weeks for continued pain and discomfort for reevaluation possible referral to physical therapy Your blood pressure was noted to be elevated today in the emergency room and is recommended that you follow-up with your primary care provider in the next 2 to 4 weeks regarding this. If you have access to a home blood pressure cuff it is recommended that you take your blood pressure on a daily basis sit for 10 to 15 minutes before taking blood pressure do not smoke before you take your blood pressure sit with your arm resting lightly on a table or counter when taking it write down all readings and take to your primary care provider for further evaluation and review Sepsis Event Note (ED) - Evaluation Sepsis Screening Result: No Definite Risk - Focused Exam Vital Signs: Vital Signs Temp Pulse Resp BP Pulse Ox 04/15/21 19:26 97.8 F 101 H 18 161/94 H 97 04/15/21 19:25 97.8 F 101 H 18 161/94 H 97
== END 2021-04-15 22:20 | disposition home or self-care (01) ==
LOC: JP.ED 19:00
DX: M54.16 Radiculopathy, lumbar region (principal); M54.41 Lumbago with sciatica, right side; M62.830 Muscle spasm of back; E78.00 Pure hypercholesterolemia, unspecified; I10 Essential (primary) hypertension; E10.9 Type 1 diabetes mellitus without complications; E66.9 Obesity, unspecified; Z68.35 Body mass index [BMI] 35.0-35.9, adult; Z88.1 Allergy status to other antibiotic agents; Z88.8 Allergy status to other drugs, medicaments and biological substances; Z79.84 Long term (current) use of oral hypoglycemic drugs; Z72.0 Tobacco use
CPT/HCPCS: 81001; 99283; A9270

== ENCOUNTER 2021-06-03 19:02 | Emergency (ER) | payer SELFPAY ==
[2021-06-03 20:03] LABS: CORONAVIRUS COVID-19 NAA NEGATIVE (NEGATIVE)
== END 2021-06-03 20:34 | disposition home or self-care (01) ==
LOC: JP.ED 19:02
DX: R51.9 Headache, unspecified (principal); R25.1 Tremor, unspecified; T43.595A Adverse effect of other antipsychotics and neuroleptics, initial encounter; I10 Essential (primary) hypertension; E10.9 Type 1 diabetes mellitus without complications; Z72.0 Tobacco use; Z88.1 Allergy status to other antibiotic agents; Z88.8 Allergy status to other drugs, medicaments and biological substances; Z79.899 Other long term (current) drug therapy; Z20.822 Contact with and (suspected) exposure to COVID-19
CPT/HCPCS: 0241U; 99283

== ENCOUNTER 2021-12-06 17:19 | Emergency (ER) | payer SELFPAY | END 2021-12-06 18:47 | disposition home or self-care (01) | LOC: JP.ED 17:19 | DX: S62.317A Displaced fracture of base of fifth metacarpal bone, left hand, initial encounter for closed fracture (principal); I10 Essential (primary) hypertension; E10.9 Type 1 diabetes mellitus without complications; Z88.1 Allergy status to other antibiotic agents; Z88.8 Allergy status to other drugs, medicaments and biological substances; Z79.899 Other long term (current) drug therapy; Z79.4 Long term (current) use of insulin; Z90.49 Acquired absence of other specified parts of digestive tract | CPT/HCPCS: 29125; 73130-26-LT; 73130-LT; 99283; 99283-25 ==